=== PATIENT | male | born 1980 | race Hispanic/Latino ===

== ENCOUNTER 2023-07-17 10:47 | Emergency (ER) | payer OTHER, MEDICAID, SELFPAY ==
[2023-07-17 10:59] VITALS: BP 156/94; PULSE 85; RESP 18; TEMP 36.8; O2SAT 99; BMI 25.1
--- NOTE | 2023-07-17 11:07 | ED.RECABL ---
HPI - Recheck/Abnormal Lab/Rx <Jose Martin Peter PA-C - Last Filed: 07/17/23 11:16> General Chief Complaint: Recheck/Abnormal Lab/Rx Stated Complaint: manic episodes, diff sleeping Time Seen by Provider: 07/17/23 11:07 Source: patient Mode of arrival: Ambulatory History of Present Illness HPI narrative: This is a 42-year-old male presents emergency department due to a medication refill. Patient states he takes quetiapine 400 mg nightly as an antipsychotic and has been working very well for him. He states that he recently ran out of medication due to some insurance issues and reports seeing and hearing things that were not there. There was no thoughts of self-harm or harming others and the voices are not telling him to hurt anyone. Denies any other physical symptoms. Requesting solely medication refill. Crusting a month's worth until he was able to follow up with his new prescriber. Related Data Previous Rx's Medication Instructions Recorded quetiapine 400 mg tablet (Seroquel) 400 mg PO BEDTIME #30 tabs 07/17/23 Allergies Allergy/AdvReac Type Severity Reaction Status Date / Time No Known Drug Allergies Allergy Verified 07/17/23 11:04 Review of Systems <Jose Martin Peter PA-C - Last Filed: 07/17/23 11:16> Review of Systems Narrative: GENERAL: Denies chills, fatigue, malaise, fever, sweats. HEENT: Denies sinus pain, ear pain, sore throat, difficulty swallowing, dizziness. RESPIRATORY: Denies dyspnea, cough, wheezing, hemoptysis, sputum. CARDIOVASCULAR: Denies chest pain, palpitations, orthopnea, edema, GASTROINTESTINAL: Denies nausea, vomiting, abdominal pain, diarrhea, constipation, melena. : Denies dysuria, frequency, incontinence, hematuria, urinary retention. MUSCULOSKELETAL: denies weakness, joint pain, or bony pain SKIN: Denies rash, skin lesions, or other NEUROLOGIC: Denies weakness, headache, numbness, change in speech, confusion, seizures, incoordination. PSYCHIATRIC: Reports auditory and visual hallucinations. 12 point review of systems is negative except for those stated above Patient History <Jose Martin Peter PA-C - Last Filed: 07/17/23 11:16> Social History Smoking Status: Current some day smoker Smoking Status: Current some day smoker tobacco type: vaping alcohol intake frequency: 0-2 drinks per day Substance Use Type: does not use Exam <ANDRES Holliday Last Filed: 07/17/23 11:16> Narrative Exam Narrative: GENERAL: Well-developed patient, in mild distress. HEAD: Atraumatic. Normocephalic. EYES: Pupils equal round and reactive. Extraocular motions intact. No scleral icterus. No injection or drainage. ENT: Nose without bleeding, purulent drainage. Throat without erythema, tonsillar hypertrophy or exudate. Airway patent. NECK: Trachea midline. Non tender EXTREMITIES: No edema or joint tenderness. NEURO: AOx3. SKIN: No rash or erythema of visible areas Initial Vital Signs Initial Vital Signs: Vital Signs Temperature 98.2 F 07/17/23 10:59 Pulse Rate 85 07/17/23 10:59 Respiratory Rate 18 07/17/23 10:59 Blood Pressure 156/94 H 07/17/23 10:59 Pulse Oximetry 99 07/17/23 10:59 Oxygen Delivery Method Room Air 07/17/23 10:59 <Eileen Zepeda DO - Last Filed: 07/18/23 07:06> Initial Vital Signs Initial Vital Signs: Vital Signs Temperature 98.2 F 07/17/23 10:59 Pulse Rate 85 07/17/23 10:59 Respiratory Rate 18 07/17/23 10:59 Blood Pressure 156/94 H 07/17/23 10:59 Pulse Oximetry 99 07/17/23 10:59 Oxygen Delivery Method Room Air 07/17/23 10:59 Course <ANDRES Holliday Last Filed: 07/17/23 11:16> Vital Signs Vital signs: Vital Signs - 8 hr 07/17/23 10:59 Temperature 98.2 F Pulse Rate 85 Respiratory Rate 18 Blood Pressure 156/94 H Pulse Oximetry 99 Oxygen Delivery Method Room Air <DO Henrique Parks Last Filed: 07/18/23 07:06> Vital Signs Vital signs: Vital Signs - 8 hr 07/17/23 10:59 Temperature 98.2 F Pulse Rate 85 Respiratory Rate 18 Blood Pressure 156/94 H Pulse Oximetry 99 Oxygen Delivery Method Room Air MDM - Recheck/Abnormal Lab/Rx <ANDRES Holliday Last Filed: 07/17/23 11:16> MDM Narrative Medical decision making narrative: ED course: This is a 42-year-old male presents to the emergency department for solely medication refill. Has been very stable on his quetiapine 400 mg nightly but ran out of medication in his begin to experience psychotic episodes. Denies any SI or HI. We will prescribe with the quetiapine until he was able to follow up with his new routine prescriber. CC: Auditory and visual hallucinations Complicating co-morbidities: None Data collected from: Previous notes Medical records reviewed: Patient has not been to this emergency department the past. Differential considered, but not limited to: Bipolar, schizophrenia Exam documented above, pertinent findings include: Reassuring physical exam Lab Test results independently reviewed as above. Pertinent findings: None obtained Imaging studies independently reviewed: None obtained Scores Used: None MIPS Elements: None Consultations: None Treatments: None Re-evaluations: None Discussion: Discussed plan with the patient was comfortable with the plan Diagnosis: Medication refill Disposition: see below, along with detailed discharge instructions that have been reviewed with patient as well as indications for ED re-evaluation and additional outpatient follow up Discharge Plan Departure Patient Disposition: Home Clinical Impression: Encounter for medication refill Activity Restrictions/Additional Instructions: Thank you for coming to the [facility] Emergency Department today. Please take medications as prescribed and make sure to see the new prescriber that you have planned for long-term dosing of this. Please return to the emergency department if you develop any suicidal ideations, homicidal ideations, or any other concerning signs or symptoms. I hope you feel better soon. Please follow up with your primary care provider within a week if your symptoms continue. If you do not have a primary care provider please contact the [facility] Resource line at [phone]. They will ask some questions about your medical history and help you get set up with a provider in the community. Prescriptions: New quetiapine [Seroquel] 400 mg tablet 400 mg PO BEDTIME Qty: 30 0RF Stand Alone Forms: Patient Portal/API ED Sign-out <Eileen Zepeda DO - Last Filed: 07/18/23 07:06> Cosign ED Attending [place] Attestation: I was available for consultation.
== END 2023-07-17 11:21 | disposition home or self-care (01) ==
PROVIDERS: Emergency Provider Physician Assistant Medical
DX: Z76.0 Encounter for issue of repeat prescription (principal)
CPT/HCPCS: 99281